=== PATIENT | male | born 1995 | race African-American/Black ===

== ENCOUNTER 2025-07-05 02:15 | Emergency (ER) | payer SELFPAY | END 2025-07-05 03:30 | disposition home or self-care (01) | LOC: FB.ED 02:15 → SUPCPDRO 02:15 → FB.ED 03:30 | DX: B34.9 Viral infection, unspecified (principal); R19.7 Diarrhea, unspecified; R10.30 Lower abdominal pain, unspecified; F17.200 Nicotine dependence, unspecified, uncomplicated | CPT/HCPCS: 99283 ==